=== PATIENT | female | born 1980 | race Caucasian/White ===

== ENCOUNTER → 2016-12-02 | Outpatient (CLI) | payer BC ==
--- NOTE | 2016-12-02 17:08 | KCIC ---
MR of the right ankle Indication: Lateral pain and swelling for 3 months. No known injury.. Technique: Standard multiplanar sequences are obtained. Findings: Peroneal tendons: Longitudinal split tear of the peroneus brevis tendon at and beyond the lateral malleolus. Mild/moderate fluid surrounds the peroneal tendons. Lateral ligaments: Scarring of the anterior talofibular, calcaneofibular and posterior talofibular ligaments. No acute discontinuity or laxity. Tibiofibular syndesmosis:Intact. Medial tendons: Posterior tibial and flexor tendons are intact. Medial ligaments: Mild fluid at the deep attachment of the deep fibers of the deltoid ligament, compatible with a sprain or small partial tear. Anterior tendons: Anterior tibial and extensor tendons are intact. Achilles tendon: Intact. Mild enthesophytes at the calcaneal attachment. Plantar aponeurosis: No acute plantar fasciitis Subtalar joints: Patent Tarsal sinus: Intact Talar Dome: Intact Bones: No significant lesion or acute fracture Fluid: No large effusion. Joints: No advanced DJD. Soft tissues: Soft tissue edema at the lateral ankle. Impression: 1. Longitudinal split tear of the peroneus brevis tendon. Mild to moderate surrounding fluid could represent tenosynovitis or hemorrhage. 2. Lateral ankle ligament scarring. 3. Sprain or partial tear of the deep fibers of the medial deltoid ligament. Electronically signed by: Jonathan Reese MD (12/02/2016 5:05 PM) [facility]
== END | disposition home or self-care (01) ==
LOC: KCIC MRI 15:03
PROVIDERS: ATTEND Internal Medicine
DX: S96.911A Strain of unspecified muscle and tendon at ankle and foot level, right foot, initial encounter (principal); R60.9 Edema, unspecified; X58.XXXA Exposure to other specified factors, initial encounter; Y93.89 Activity, other specified; Y92.89 Other specified places as the place of occurrence of the external cause; Y99.8 Other external cause status
CPT/HCPCS: 73721

== ENCOUNTER → 2017-12-01 | Outpatient (CLI) | payer BC ==
--- NOTE | 2017-12-01 16:40 | KCIC ---
Examination: CT ABDOMEN PELVIS WO CONTRAST History: Left flank pain, back pain, symptoms for 2 months, hematuria Comparison/Correlation: None Findings: Axial images of the abdomen and pelvis were obtained without contrast. Sagittal and coronal reformatted images were provided. Lack of contrast demonstration may limit detection for mass lesions and inflammatory processes. The visualized lung bases are clear. Diffuse fatty infiltration of the liver noted. Spleen and pancreas are unremarkable. Adrenal glands are normal. Cholecystectomy evident. Right renal contour is normal. There are no radiopaque right collecting system catheter. No right hydronephrosis. There is a calculus within the left renal pelvis with mild associated hydronephrosis. This calculus measures up to 1.8 cm diameter. There are 2 inferior pole left renal calyceal calculi. Both measure slightly greater than 0.6 cm diameter. There is slight fullness of the left renal pelvis. No radiopaque left ureteral calculi. There is scalloping and lytic change of the posterior vertebral bodies of L2 and L3. This lytic involvement is well-demarcated. Expansile appearance of the spinal canal at these levels also noted. Expansile appearance of the left L2-3 and L3-4 neural foramina is noted. Punctate calcific components are evident within this process. Calcific density is also present within the spinal canal on the left at the level posterior to the L4 vertebral body. The prosthesis associated with findings described earlier is contiguous with a slightly complex fluid density collection with Hounsfield units of 23 extending into the left psoas muscle posterior margin. This component measures 10.3 cm longitudinal by 3.8 cm transverse by 3.8 cm anteroposterior. Curvilinear calcific components are present within this mildly complex collection. Multilevel degenerative space narrowing from L1 to L5 is moderate to severe extent. This is greatest at L4-5. Fibroids of the uterus is present. Uterus is enlarged. Appendix is normal. Moderate quantity of stool is present in the colon. No bowel obstruction or inflammatory change. Minimal diverticulosis of the colon is suggested. No ascites or pelvic free fluid. No enlarged abdominal or pelvic lymph nodes. Impression: Large left renal pelvic calculus with partial obstruction and mild hydronephrosis. Nonobstructive left lower pole calyceal calculi. No left ureteral radiopaque calculi. A complex fluid density mass with calcific components is present within the left L2-3 and L3/4 neural foramina with involvement of the left psoas muscle. Lytic involvement of the L2 and L3 vertebral bodies is evident. Expansion of the spinal canal at these levels is present. Findings are of concern for neurofibroma or schwannoma. Other nerve sheath neoplastic process also is also of concern. Further evaluation MRI of the lumbar spine without and with contrast if able is recommended. Fibroid uterus. Electronically signed by: Carlton Costello MD (12/01/2017 4:37 PM) [facility]
== END | disposition home or self-care (01) ==
LOC: KCIC CT 15:25
PROVIDERS: ATTEND Internal Medicine
DX: N20.0 Calculus of kidney (principal); K57.30 Diverticulosis of large intestine without perforation or abscess without bleeding; M48.061 Spinal stenosis, lumbar region without neurogenic claudication
CPT/HCPCS: 74176

== ENCOUNTER → 2017-12-06 | Outpatient (CLI) | payer BC ==
[~2017-12-06] MED LIST: GADOBUTROL 10 MMOL/10 ML VIAL IV ONE
--- NOTE | 2017-12-06 16:55 | RAD ---
MRI Lumbar Spine without and with contrast History: Back pain, abnormal CT Technique: Multiplanar, multi sequential pre and postcontrast MR imaging was performed of the lumbar spine. Contrast: 9 cc Gadavist Comparison: CT exam December 01, 2017 Findings: As seen on the CT, there is bony erosion involving the posterior aspects of the left L3 and L2 vertebral bodies, also degree of mild erosion posteriorly at L4. Despite bony erosion, there is no significant edema of the vertebral bodies. There is expansion of the left L2-3 neural foramen, to lesser degree at L3-4 and L1-2. Mass also extends to the margin of the left L4-5 neural foramen. Associated with the areas of bony erosion as well as soft tissue abnormality, there is prominent abnormal T2 hyperintense signal with associated heterogeneous enhancement. There is also extent of signal abnormality with associated enhancement into the left psoas muscle and also extent to the epidural space, extra medullary, extradural enhancement present. This in overall greatest dimension measures about 12.7 cm CC by about 6.9 cm transverse by 4.4 cm AP. At the L2-3 level, there is severe left lateral recess stenosis. The is also moderate to severe narrowing of the far left lateral recess at the L3-4 level. Epidural extent extends from the level of the superior one third of the L2 vertebral body to the mid aspect of L4. Vertebral body stature is overall preserved other than the areas of bony erosion. AP alignment is within normal limits. There is [id number] degenerative disc disease L3-4 to L5-S1 and to lesser degree at L2-3. Conus terminates at T12-L1 no nodular enhancement of the conus medullaris, no significant enhancement in the intervertebral disc spaces. There are left renal calculi better seen on CT. There are cystic foci of the right pelvis in the adnexal region with the largest 1.9 cm. Impression: 1. Corresponding with CT findings, there is large heterogeneously enhancing, T2 hyperintense mass with involvement of the left psoas muscle and also extent to the epidural space, associated smooth bony erosion most notable of the posterior left L2 and L3 vertebral bodies, contributes to left lateral recess stenosis greatest at the L2-3 level and to lesser degree at L3-4. Considerations would include plexiform neurofibroma/schwannoma/peripheral nerve sheath tumor, cannot exclude underlying ligament transformation. Indolent infectious etiology such as tuberculosis is considered less likely although not excluded by imaging. Electronically signed by: Shola Waldrop MD (12/06/2017 4:51 PM) [id number]
== END | disposition home or self-care (01) ==
LOC: MRI 14:23
PROVIDERS: ATTEND Internal Medicine
DX: M48.061 Spinal stenosis, lumbar region without neurogenic claudication (principal); M51.37 Other intervertebral disc degeneration, lumbosacral region; M51.36 Other intervertebral disc degeneration, lumbar region; N20.0 Calculus of kidney
CPT/HCPCS: 72158; A9585